=== PATIENT | male | born 1960 | race African-American/Black ===

== ENCOUNTER 2017-08-03 09:27 | Emergency (ER) | payer BC ==
[2017-08-03 10:15] LABS: #Basophils 0.1 thou/uL (0.0-0.2); #Eosinphils 0.2 thou/uL (0.0-0.7); #Lymphocytes 2.4 thou/uL (1.20-3.40); #Monocytes 0.5 thou/uL (0.11-0.59); #Neutrophils 2.6 thou/uL (1.40-6.50); %Basophils 1.7 % (0.0-1.0); %Lymphocytes 40.9 % (21.0-51.0); %Monocytes 8.4 % (0.0-10.0); Mean Platelet Volume 6.5 fL (7.4-10.4); Red Blood Cell (RBC) Count 4.41 mill/uL (4.70-6.10); White Blood Cell (WBC) Count 5.8 thou/uL (4.8-10.8)
[2017-08-03 10:45] LABS: ALT (SGPT) 16 U/L (8-55); AST (SGOT) 21 U/L (5-34); Alkaline Phosphatase 40 U/L (40-150); Anion Gap 15 mmol/L (10-20); BUN (Urea Nitrogen) 12 mg/dL (8.4-25.7); Bilirubin, Total 0.8 mg/dL (0.2-1.2); Calc. Creatinine Clearance 0 mL/min (70-130); Calcium 9.5 mg/dL (7.8-10.44); Carbon Dioxide 23 mmol/L (22-29); Chloride 104 mmol/L (98-107); Estimated GFR-MDRD Greater than 90; Globulin 3.8 g/dL (2.4-3.5); Protein, Total 8.2 g/dL (6.0-8.3); Troponin I Less than 0.010 ng/mL (< 0.028)
== END 2017-08-03 11:06 | disposition home or self-care (01) ==
LOC: ERS 09:27
DX: R00.2 Palpitations (principal); I10 Essential (primary) hypertension; Z87.891 Personal history of nicotine dependence; Z79.899 Other long term (current) drug therapy
CPT/HCPCS: 36415; 80053; 82553; 84484; 85025; 85379; 93005; 94760

== ENCOUNTER 2017-12-30 09:13 | Outpatient (CLI) | payer BC ==
[2017-12-30 10:12] LABS: Hemoglobin 14.8 g/dL (14.0-18.0); Mean Corpuscular HGB CONC 32.9 g/dL (32.0-36.0); Mean Corpuscular Hemoglobin 34.3 pg (27.0-31.0); Platelet Count 137 thou/uL (130-400); RBC Distribution Width 10.6 % (11.5-14.5); Red Blood Cell (RBC) Count 4.32 mill/uL (4.70-6.10); White Blood Cell (WBC) Count 5.7 thou/uL (4.8-10.8)
[2017-12-30 10:17] LABS: Prothrombin Time 13.1 SEC (12.0-14.7)
[2017-12-30 10:28] LABS: Anion Gap 13 mmol/L (10-20); BUN (Urea Nitrogen) 10 mg/dL (8.4-25.7); Calc. Creatinine Clearance 0 mL/min (70-130); Calcium 9.6 mg/dL (7.8-10.44); Carbon Dioxide 24 mmol/L (22-29); Chloride 105 mmol/L (98-107); Estimated GFR-MDRD Greater than 90; Glucose 100 mg/dL (70-105); Potassium 4.4 mmol/L (3.5-5.1); Sodium 138 mmol/L (136-145)
--- NOTE | 2017-12-30 15:46 | EKG ---
Test Reason : Blood Pressure : / mmHG Vent. Rate : 067 BPM Atrial Rate : 067 BPM P-R Int : 182 ms QRS Dur : 098 ms QT Int : 384 ms P-R-T Axes : 069 018 013 degrees QTc Int : 405 ms Normal sinus rhythm T wave abnormality, consider inferior ischemia Cannot rule out Anterior infarct , age undetermined Abnormal ECG Confirmed by STEW ALVARADO ([id number]) on 12/30/2017 3:46:01 PM Referred By: AVI Confirmed By:STEW ALVARADO
== END 2017-12-30 09:14 | disposition home or self-care (01) ==
LOC: LABBT 09:13
PROVIDERS: ATTEND Internal Medicine Cardiovascular Disease
DX: Z01.818 Encounter for other preprocedural examination (principal); I34.1 Nonrheumatic mitral (valve) prolapse
CPT/HCPCS: 80048; 85027; 85610; 93005; 93010

== ENCOUNTER 2017-12-31 06:41 | Day surgery (SDC) | payer BC ==
[2017-12-30 09:32] VITALS: BMI 27.3
[2017-12-31] MEDS ORDERED: Diprivan 40 ML ONE (08:33)
[2017-12-31] MEDS ORDERED: Propofol 200 MG/20 ML VIAL ONE (17:06)
--- NOTE | 2017-12-31 18:29 | ECHO ---
DATE OF SERVICE: 12/31/2017. A transesophageal echo was done for evaluation of mitral valve prolapse. The Anesthesiology Department provided sedation for the patient. Please see their notes for details) . After adequate sedation was achieved, transesophageal probe was inserted into his mouth and into the esophagus without problems. Multiplanar views were then obtained. Left ventricle appears to be normal size with normal wall thickness. Systolic function is normal wit h EF estimated at 60-65%. No regional wall motion abnormalities. Left atrium is dilated with no evidence of mass or thrombus. Left atrial appendage is a large appenda ge with normal velocities. Patient currently in sinus rhythm. Right atrium is normal size. No mass or thrombus. Right ventricle is normal size and normal systolic function. Aortic valve is structurally normal. Three cusps, no stenosis. There is mild aortic insufficiency. Mitral valve has bileaflet mitral valve prolapse, worse on the posterior leaflet. There is moderate to severe jet of mitral regurgitation posteriorly directed jet. Tricuspid valve structurally normal. There is mild TR. Pulmonary valve is structurally normal. There is no significant pulmonary valve stenosis or regurgit ation. Interatrial septum appears to have a small patent foramen ovale with mostly left to right shunting. Thoracic descending aorta has a grade III atherosclerotic disease. CONCLUSIONS: 1. Normal systolic function. EF estimated at 60-65%. 2. Left atrial enlargement. 3. Tricuspid and aortic valve with mild aortic insufficiency. 4. Mild TR. 5. Small patent foramen ovale. 6. Bileaflet mitral valve prolapse, worse on the posterior leaflet with moderate to severe jet of mi tral regurgitation.
== END 2017-12-31 10:29 | disposition home or self-care (01) ==
LOC: CCL 06:41
PROVIDERS: ATTEND Internal Medicine Cardiovascular Disease
PROC: B246ZZ4 Ultrasonography of Right and Left Heart, Transesophageal (ICD-10-PCS; principal; 2017-12-31)
DX: I34.1 Nonrheumatic mitral (valve) prolapse (principal); I10 Essential (primary) hypertension; Z79.899 Other long term (current) drug therapy; Z98.890 Other specified postprocedural states
CPT/HCPCS: 93312; J2704

== ENCOUNTER 2019-05-16 16:52 | Emergency (ER) | payer BC ==
--- NOTE | 2019-05-16 17:23 | RAD ---
RADIOGRAPH CHEST 2 VIEW: DATE: 05/16/2019 HISTORY: 58-year-old male with chest pain and tachycardia. FINDINGS: The thoracic aorta is tortuous and ectatic. There is no evidence of airspace density, pulmonary edema , or pneumothorax. There is no cardiomegaly or pleural effusion. IMPRESSION: 1) No acute cardiopulmonary findings. 2) ectasia of thoracic aorta.
[2019-05-16 17:54] LABS: #Basophils 0.1 thou/uL (0.0-0.2); #Eosinphils 0.2 thou/uL (0.0-0.7); #Lymphocytes 2.1 thou/uL (1.20-3.40); #Monocytes 0.4 thou/uL (0.11-0.59); %Basophils 1.4 % (0.0-1.0); %Eosinophils 2.9 % (0.0-10.0); %Lymphocytes 36.9 % (21.0-51.0); %Monocytes 7.1 % (0.0-10.0); %Neutrophils 51.8 % (42.0-75.0); Hemoglobin 14.2 g/dL (14.0-18.0); Mean Corpuscular Hemoglobin 33.5 pg (27.0-31.0); Mean Platelet Volume 7.3 fL (7.4-10.4); Platelet Count 128 thou/uL (130-400); RBC Distribution Width 10.8 % (11.5-14.5); Red Blood Cell (RBC) Count 4.23 mill/uL (4.70-6.10); White Blood Cell (WBC) Count 5.7 thou/uL (4.8-10.8)
[2019-05-16 18:24] LABS: ALT (SGPT) 16 U/L (8-55); AST (SGOT) 19 U/L (5-34); Albumin 4.3 g/dL (3.5-5.0); Alkaline Phosphatase 43 U/L (40-150); Anion Gap 12 mmol/L (10-20); BUN (Urea Nitrogen) 11 mg/dL (8.4-25.7); Bilirubin, Total 0.9 mg/dL (0.2-1.2); CK (CPK) 118 U/L (30-200); Calc. Creatinine Clearance 0 mL/min (70-130); Carbon Dioxide 25 mmol/L (22-29); Chloride 104 mmol/L (98-107); Estimated GFR-MDRD Greater than 90; Globulin 3.8 g/dL (2.4-3.5); Glucose 79 mg/dL (70-105); Potassium 4.3 mmol/L (3.5-5.1); Protein, Total 8.1 g/dL (6.0-8.3); Sodium 137 mmol/L (136-145)
[2019-05-16 19:57] LABS: Acetaminophen Less than 6.0 mcg/mL (10.0-30.0); Alcohol Less than 10 mg/dL (Less than 10); Salicylate Less than 8.0 mg/dL (15.0-30.0)
== END 2019-05-16 21:49 | disposition home or self-care (01) ==
LOC: ERS 16:52
DX: R00.2 Palpitations (principal); F41.9 Anxiety disorder, unspecified; Z87.891 Personal history of nicotine dependence; Z79.899 Other long term (current) drug therapy
CPT/HCPCS: 36415; 71046; 80053; 80307; 82550; 83880; 84484; 85025; 93005

== ENCOUNTER 2019-11-05 15:07 | Emergency (ER) | payer BC | END 2019-11-05 17:39 | disposition home or self-care (01) | LOC: ERS 15:07 | DX: R00.2 Palpitations (principal); I10 Essential (primary) hypertension; Z87.891 Personal history of nicotine dependence; Z79.899 Other long term (current) drug therapy | CPT/HCPCS: 93005 ==

== ENCOUNTER 2020-05-30 08:42 | Emergency (ER) | payer OTHER ==
--- NOTE | 2020-05-30 09:46 | RAD ---
XR Chest 1 View Portable HISTORY: Irregular heart rate FINDINGS: The heart size is normal. The aorta is tortuous. The lungs are well expanded without focal areas of consolidation, pneumothorax or pleural effusions. IMPRESSION: No radiographic evidence of acute cardiopulmonary process.
[2020-05-30 09:54] LABS: #Eosinphils 0.1 thou/uL (0.0-0.7); #Lymphocytes 1.4 thou/uL (1.20-3.40); #Monocytes 0.5 thou/uL (0.11-0.59); #Neutrophils 3.9 thou/uL (1.40-6.50); %Basophils 0.4 % (0.0-1.0); %Eosinophils 1.5 % (0.0-10.0); %Lymphocytes 24.1 % (21.0-51.0); %Monocytes 8.2 % (0.0-10.0); %Neutrophils 65.9 % (42.0-75.0); Hemoglobin 14.9 g/dL (14.0-18.0); Mean Platelet Volume 7.1 fL (7.4-10.4); Platelet Count 132 thou/uL (130-400); Red Blood Cell (RBC) Count 4.37 mill/uL (4.70-6.10); White Blood Cell (WBC) Count 5.9 thou/uL (4.8-10.8)
[2020-05-30 10:15] LABS: ALT (SGPT) 16 U/L (8-55); AST (SGOT) 19 U/L (5-34); Albumin 4.5 g/dL (3.5-5.0); Alkaline Phosphatase 42 U/L (40-110); Anion Gap 12 mmol/L (10-20); BUN (Urea Nitrogen) 14 mg/dL (8.4-25.7); Calc. Creatinine Clearance 0 mL/min (70-130); Calcium 9.6 mg/dL (7.8-10.44); Carbon Dioxide 23 mmol/L (22-29); Chloride 107 mmol/L (98-107); Estimated GFR-MDRD Greater than 90; Globulin 3.7 g/dL (2.4-3.5); Glucose 105 mg/dL (70-105); Potassium 4.1 mmol/L (3.5-5.1); Protein, Total 8.2 g/dL (6.0-8.3); Sodium 138 mmol/L (136-145)
== END 2020-05-30 12:13 | disposition home or self-care (01) ==
LOC: ERS 08:42
DX: R00.2 Palpitations (principal); I10 Essential (primary) hypertension; F41.9 Anxiety disorder, unspecified; Z87.891 Personal history of nicotine dependence
CPT/HCPCS: 36415; 71045; 80053; 83735; 84443; 84484; 85025; 93005; 94760